=== PATIENT | male | born 1980 | race Two or more races ===

== ENCOUNTER → 2017-07-08 | Emergency (ER) | payer OTHER ==
[~2017-07-08] VITALS: Ht 170.2 cm; Wt 86.2 kg
== END | disposition home or self-care (01) ==
LOC: ER 17:57
DX: K52.9 Noninfective gastroenteritis and colitis, unspecified (principal)

== ENCOUNTER 2018-04-11 18:57 | Emergency (ER) | payer OTHER ==
[~2018-04-11] VITALS: Ht 170.2 cm; Wt 84.4 kg
[2018-04-11] MEDS ORDERED: CLINDAMYCIN HC300 MG (19:13)
[2018-04-11] MEDS ORDERED: [UNRECOGNIZED DRUG - OTHER] (19:13)
== END 2018-04-11 21:41 | disposition home or self-care (01) ==
LOC: ER 18:57
DX: M79.675 Pain in left toe(s) (principal); M10.9 Gout, unspecified

== ENCOUNTER 2021-01-11 07:04 | Emergency (ER) | payer OTHER ==
[~2021-01-11] VITALS: Ht 172.7 cm; Wt 86.2 kg
[~2021-01-11 07:04] MED LIST: CLINDAMYCIN HC300 MG; [UNRECOGNIZED DRUG - OTHER]
[2021-01-11] MEDS ORDERED: CIPRO500 MG PO (11:39)
[2021-01-11] MEDS ORDERED: PEPCID AC20 MG PO (11:39)
[2021-01-11] MEDS ORDERED: INTESTINEX680 M1 PO (11:39)
[2021-01-11] MEDS ORDERED: FLAGYL500MG PO (11:39)
== END 2021-01-11 13:31 | disposition home or self-care (01) ==
LOC: ER 07:04
DX: K52.9 Noninfective gastroenteritis and colitis, unspecified (principal); R11.0 Nausea